=== PATIENT | male | born 1975 | race Caucasian/White ===

== ENCOUNTER 2024-05-01 06:41 | Day surgery (SDC) | payer OTHER ==
[~2024-05-01 06:41] MED LIST: Sodium Chloride 0.9% 10 ML Syringe FLUSH PRN; Sodium Chloride 0.9% 10 ML Syringe FLUSH SCH
[2024-05-01] MEDS: Lactated Ringers 1,000 ML IV SCH (07:20)
[2024-05-01] MEDS ORDERED: Propofol 200 MG/20 ML SDV ONE ×3 (07:34)
[2024-05-01] MEDS ORDERED: Midazolam 1 MG/ML 2 ML SDV ONE (07:35)
[2024-05-01] MEDS ORDERED: fentaNYL 100 MCG/2 ML SDV ONE (07:35)
[2024-05-01] MEDS ORDERED: Lidocaine 2% 5 ML SDV ONE (07:36)
== END 2024-05-01 09:30 | disposition home or self-care (01) ==
LOC: JD.SDS 06:41
PROVIDERS: ATTEND Surgery
DX: D12.4 Benign neoplasm of descending colon (principal); D12.5 Benign neoplasm of sigmoid colon; K21.9 Gastro-esophageal reflux disease without esophagitis; E78.5 Hyperlipidemia, unspecified; E11.9 Type 2 diabetes mellitus without complications; F32.A Depression, unspecified; F17.210 Nicotine dependence, cigarettes, uncomplicated; Z79.899 Other long term (current) drug therapy
CPT/HCPCS: 43239; 45380; J2250; J2704; J3010; J7120; 00813; J3490